=== PATIENT | male | born 1960 | race Caucasian/White ===

== ENCOUNTER 2019-12-03 18:35 | Emergency (ER) | payer BC ==
[2019-12-03] MEDS ORDERED: Sodium Chloride 0.9% 10 ML Syringe FLUSH PRN (19:00)
[2019-12-03] MEDS ORDERED: Ketorolac 30 MG/ML SDV IVPUSH ONE (19:00)
[2019-12-03] MEDS ORDERED: HYDROmorphone 1 MG/ML Syringe IVPUSH ONE (19:01)
--- NOTE | 2019-12-03 19:04 | EDM.PDOC ---
ED HPI GENERAL MEDICAL PROBLEM - General Chief Complaint: Flank Pain Stated Complaint: STONES Time Seen by Provider: 12/03/19 18:55 Source of Information: Reports: Patient History Limitations: Reports: No Limitations - History of Present Illness INITIAL COMMENTS - FREE TEXT/NARRATIVE: Patient presents for evaluation of intense left mid back pain radiating to the groin beginning approximately 1400 hours today. He has had previous kidney stones and at the time of his last stone, he was found to have a retained stone within the left kidney but not causing any difficulty at that time. His previous stone on the right was an 8 mm stone which he passed at home without assistance! When the pain began today. Resembles almost exactly his previous episode. He hasn't taken anything for pain. There is no position of comfort. Urine today has been significantly darker than usual. Onset: Today Duration: Hour(s): (Five) Location: Reports: Back, Other (Left groin region.) Quality: Reports: Sharp, Stabbing Severity: Severe Improves with: Reports: None Worsens with: Reports: None Associated Symptoms: Reports: No Other Symptoms Left Flank Pain Score (Numeric/FACES): 10 - Related Data Allergies Allergy/AdvReac Type Severity Reaction Status Date / Time No Known Allergies Allergy Verified 01/13/18 08:17 Home Meds: Home Meds Acetaminophen [Tylenol] 1,000 mg PO Q6H PRN 12/03/19 [History] Ibuprofen 800 mg PO Q8H PRN 12/03/19 [History] Tamsulosin HCl [Flomax] 0.8 mg PO DAILY PRN 12/03/19 [History] predniSONE [Prednisone] 7.5 mg PO BID 12/03/19 [History] Past Medical History Genitourinary History: Reports: Renal Calculus Musculoskeletal History: Reports: Back Pain, Chronic - Infectious Disease History Infectious Disease History: Reports: Chicken Pox - Past Surgical History Respiratory Surgical History: Reports: Lung Biopsies Social & Family History - Tobacco Use Smoking Status *Q: Current Every Day Smoker Years of Tobacco use: 30 Packs/Tins Daily: 1 - Caffeine Use Caffeine Use: Reports: Coffee - Recreational Drug Use Recreational Drug Use: No ED ROS GENERAL - Review of Systems Review Of Systems: See Below Constitutional: Denies: Fever, Chills GI/Abdominal: Denies: Nausea, Vomiting : Reports: Flank Pain (Left sided.), Hematuria. Denies: Dysuria Musculoskeletal: Reports: Back Pain (Left CVA region.) ED EXAM, GI/ABD - Physical Exam Exam: See Below Text/Narrative:: This is an adult male standing and pacing in exam room 4. He is very uncomfortable appearing. Exam Limited By: No Limitations General Appearance: Alert, Moderate Distress GI/Abdominal Exam: Soft. No: Guarding Back Exam: CVA Tenderness (L) (Pain with in CVA region.) Course - Vital Signs Last Recorded V/S: Last Vital Signs Temp 36.1 C 12/03/19 18:48 Pulse 82 12/03/19 18:48 Resp 20 12/03/19 18:48 BP 132/84 12/03/19 18:48 Pulse Ox 95 12/03/19 18:48 - Orders/Labs/Meds Orders: Active Orders 24 hr Category Date Time Status UA W/MICROSCOPIC [URIN] Stat Lab 12/03/19 19:00 Saline Lock Insert [OM.PC] Routine Oth 12/03/19 19:00 Ordered Labs: Laboratory Tests 12/03/19 Range/Units 19:19 Sodium 142 (140-148) mmol/L Potassium 4.0 (3.6-5.2) mmol/L Chloride 104 (100-108) mmol/L Carbon Dioxide 28 (21-32) mmol/L Anion Gap 9.9 (5.0-14.0) mmol/L BUN 23 H (7-18) mg/dL Creatinine 1.0 (0.8-1.3) mg/dL Est Cr Clr Drug Dosing 90.19 mL/min Estimated GFR (MDRD) > 60 (>60) Glucose 101 (74-106) mg/dL Calcium 9.8 (8.5-10.1) mg/dL Meds: Medications Discontinued Medications Generic Name Dose Route Start Last Admin Trade Name Freq PRN Reason Stop Dose Admin Hydromorphone HCl 1 mg 12/03/19 19:01 12/03/19 19:08 Dilaudid IVPUSH 12/03/19 19:02 1 mg ONETIME ONE Administration Ketorolac Tromethamine 30 mg 12/03/19 19:00 12/03/19 19:09 Toradol IVPUSH 12/03/19 19:01 30 mg ONETIME ONE Administration Sodium Chloride 10 ml 12/03/19 19:00 12/03/19 19:11 Saline Flush FLUSH 10 ml ASDIRECTED PRN Administration Keep Vein Open - Re-Assessments/Exams Free Text/Narrative Re-Assessment/Exam: 12/03/19 19:09 His history and exam are strongly suggestive of another kidney stone moving down the tubes. He will be given ketorolac 30 mg and hydromorphone 1 mg both as IV doses. A stone protocol CT scan will be ordered. 12/03/19 19:55 I personally reviewed his CT images. A moderately large stone is seen at the left UVJ with hydronephrosis and perinephric stranding above it. 12/03/19 19:59 I reviewed the imaging appearance with patient and his . There is also a retropulsed lower lumbar bone fragment which he is already aware of. His pain is significantly improved at this time given his appearance he might even have passed the stone by now. He has Flomax at home and I recommend that he take that daily for the next week. An [employer] prescription was entered for oxycodone 5/325 mg, 12 tablets; use as directed. He is very familiar with what to do in the course of passing kidney stones. If he feels worse in anyway he can return here at any time. He was discharged in improved condition. Departure - Departure Time of Disposition: 20:04 Disposition: Home, Self-Care 01 Condition: Good Clinical Impression: Ureteric colic - Discharge Information *PRESCRIPTION DRUG MONITORING PROGRAM REVIEWED*: Not Applicable *COPY OF PRESCRIPTION DRUG MONITORING REPORT IN PATIENT PAULO: Not Applicable Instructions: Renal Colic, [id number] Referrals: PCP,None [Primary Care Provider] - Forms: ED Department Discharge Additional Instructions: Take Flomax daily for the next week. Use oxycodone as needed for severe pain. Hopefully the stone will pass soon given its position on the scan tonight. Keep upcoming appointment for your low back evaluation. Return to ER if feeling worse in anyway. Sepsis Event Note - Evaluation Sepsis Screening Result: No Definite Risk - Focused Exam Vital Signs: Vital Signs Temp Pulse Resp BP Pulse Ox 12/03/19 18:48 36.1 C 82 20 132/84 95 Date Exam was Performed: 12/03/19 Time Exam was Performed: 21:32 - My Orders Last 24 Hours: My Active Orders 12/03/19 19:00 UA W/MICROSCOPIC [URIN] Stat Saline Lock Insert [OM.PC] Routine - Assessment/Plan Last 24 Hours: My Active Orders 12/03/19 19:00 UA W/MICROSCOPIC [URIN] Stat Saline Lock Insert [OM.PC] Routine
--- NOTE | 2019-12-03 19:56 | CRLCT ---
INDICATION: Decided pain TECHNIQUE: CT abdomen and pelvis without contrast. COMPARISON: 10/11/2019 FINDINGS: Lower chest: Unremarkable. Liver: Unremarkable. Spleen: Unremarkable. Pancreas: Unremarkable. Gallbladder and bile ducts: Unremarkable. Kidneys: 6 millimeter obstructing calculus left UVJ with moderate left hydronephrosis and perinephric fat stranding. 4 millimeter nonobstructing calculi inferior pole left kidney. Stable 12 millimeter exophytic lesion posterior mid left kidney. This is unchanged compared to 10/11/2019. Adrenal glands: Unremarkable. GI tract: Unremarkable. Appendix is normal. Vascular structures: Unremarkable. Lymph nodes: Unremarkable. Miscellaneous: Unremarkable. No free air or significant free fluid. Pelvic Organs: Unremarkable. Bones: Unremarkable for age. IMPRESSION: 6 millimeter obstructing calculus left UVJ with moderate left hydronephrosis and perinephric fat stranding. 4 millimeter obstructing calculi inferior pole left kidney. Stable 12 millimeter exophytic lesion posterior mid left kidney. This is unchanged compared to 10/11/2019. Dictated by To Hernandez MD @ 12/03/2019 7:52:28 PM Please note that all CT scans at this facility use dose modulation, iterative reconstruction, and/or weight-based dosing when appropriate to reduce radiation dose to as low as reasonably achievable. Dictated by: To Hernandez MD @ 12/03/2019 19:53:49 (Electronically Signed)
== END 2019-12-03 20:11 | disposition home or self-care (01) ==
LOC: JP.ED 18:35
DX: N13.2 Hydronephrosis with renal and ureteral calculous obstruction (principal); F17.210 Nicotine dependence, cigarettes, uncomplicated
CPT/HCPCS: 36415; 74176; 80048; 96374; 96375; 99284; J1170; J1885

== ENCOUNTER 2024-03-08 06:27 | Day surgery (SDC) | payer BC ==
[2024-03-08 06:43] LABS: HEMOGLOBIN 15.7 g/dL (12.9-16.9); MEAN CORPUSCULAR HEMOGLOBIN 30.7 pg (31.6-35.5); MEAN CORPUSCULAR HGB CONC 34.1 g/dL (31.6-35.5); RED BLOOD CELL COUNT 5.11 M/uL (4.14-5.76); WHITE BLOOD CELL COUNT,WBC 6.9 K/uL (3.2-11.0)
[2024-03-08] MEDS: Nozin Nasal Sanitizer NASBOTH ONE (06:59)
[2024-03-08] MEDS ORDERED: ceFAZolin 1 GM in Sodium Chloride 0.9% 50 ML IV ONE (07:00)
[2024-03-08 07:03] LABS: A/G RATIO 0.9 (1.2-2.2); ALANINE AMINOTRANSFERASE,ALT 32 U/L (12-78); ALBUMIN 3.5 g/dL (3.4-5.0); ALKALINE PHOSPHATASE 73 U/L (46-116); ASPARTATE AMNIOTRANSFERASE,AST 21 U/L (15-37); BILIRUBIN TOTAL 0.6 mg/dL (0.2-1.0); BLOOD UREA NITROGEN,BUN 25 mg/dL (7-18); CALCIUM 9.4 mg/dL (8.5-10.1); CARBON DIOXIDE,CO2 27 mmol/L (21-32); CHLORIDE,CL 101 mmol/L (100-108); CREATININE 0.9 mg/dL (0.8-1.3); EST CRCL DRUG DOSING (CG) 95.14 mL/min; ESTIMATED GFR 95 mL/min (>60); GLUCOSE RANDOM 117 mg/dL (74-106); POTASSIUM,K 4.1 mmol/L (3.6-5.2); PROTEIN TOTAL,TP 7.6 g/dL (6.4-8.2); SODIUM,NA 137 mmol/L (140-148)
[2024-03-08 07:04] LABS: ANION GAP 13.1 mmol/L (5.0-14.0)
[2024-03-08] MEDS: methylPREDNISolone Sodium Succinate 125 MG/2 ML SDV IVPUSH ONE (07:26)
[2024-03-08] MEDS: Lactated Ringers 1,000 ML IV SCH (07:28)
[2024-03-08] MEDS ORDERED: fentaNYL 100 MCG/2 ML SDV ONE (07:44)
[2024-03-08] MEDS ORDERED: Propofol 200 MG/20 ML SDV ONE ×2 (07:44→08:11)
[2024-03-08] MEDS ORDERED: Midazolam 1 MG/ML 2 ML SDV ONE (07:44)
[2024-03-08] MEDS: ceFAZolin 1 GM in Premix Bag 1 BAG IV ONE (07:55)
[2024-03-08] MEDS: Bupivacaine 0.5% 30 ML SDV ONE (08:27)
[2024-03-08] MEDS: Acetaminophen/HYDROcodone 325-5 MG Tab PO PRN (09:45)
== END 2024-03-08 09:56 | disposition home or self-care (01) ==
LOC: JP.SDS 06:27
PROVIDERS: ATTEND Specialist
DX: D36.13 Benign neoplasm of peripheral nerves and autonomic nervous system of lower limb, including hip (principal)
CPT/HCPCS: 36415; 64786; 80053; 85027; A9270; J0665; J0690; J2250; J2704; J2930; J3010; J7120